=== PATIENT | male | born 1970 | race Caucasian/White ===

== ENCOUNTER → 2020-04-11 14:53 | Outpatient (CLI) | payer BC, SELFPAY ==
[2020-04-11 14:55] LABS: MANUAL DIFFERENTIAL MANUAL DIFFERENTIAL (MANUAL DIFF)
[2020-04-11 15:50] LABS: Basophils # 0.1 K/mm3 (0-0.2); Basophils % 0.7 % (0.1-2.0); Eosinophils # 0.8 K/mm3 (0.0-0.4); Eosinophils % 9.5 % (0.1-12.0); Hematocrit 45.8 % (42.0-52.0); Hemoglobin 15.9 g/dL (14.1-18.0); Lymphocytes # 2.3 K/mm3 (0.7-4.5); Lymphocytes % 27.3 % (10-50); Mean Corpuscular HGB Conc 34.8 g/dL (31.8-35.4); Mean Corpuscular Hemoglobin 31.8 pg (27.0-31.2); Mean Corpuscular Volume 91.4 fl (80-94); Mean Platelet Volume 7.1 fl (7.4-10.4); Monocytes # 0.6 K/mm3 (0.1-1.0); Monocytes % 6.8 % (1.7-9.3); Neutrophils # 4.6 K/mm3 (1.8-7.8); Neutrophils % 55.7 % (37.0-80.0); Platelet Count 228 K/mm3 (142-424); Red Blood Count 5.01 M/mm3 (4.60-6.20); Red Cell Distribution Width 12.7 % (11.5-17.5); White Blood Count 8.2 K/mm3 (4.8-10.8)
[2020-04-11 20:47] LABS: Lymphocytes % 23 % (10-50); Monocytes % 11 % (2-9); Neutrophils % 66 % (42-76); Platelet Estimate Normal; RBC Morphology Normal; Total Cells Counted 100
== END ==
PROVIDERS: Visit Provider Otolaryngology
DX: J32.0 Chronic maxillary sinusitis (principal); J34.2 Deviated nasal septum; J34.3 Hypertrophy of nasal turbinates
CPT/HCPCS: 36415; 85007; 85014; 85018; 85048; 85049

== ENCOUNTER → 2020-04-20 11:13 | Outpatient (CLI) | payer BC, SELFPAY ==
--- NOTE | 2020-04-20 11:13 | CT_ITS ---
PROCEDURE: CT CHEST WO CON CLINICAL INDICATION: trachea displacemnt Congestion COMPARISON: CT ANGIO CHEST from 11/24/2019 XR CHEST 2V from 11/24/2019 TECHNIQUE: Axial images obtained with sagittal and coronal reformats. All CT scans at the facility use one or more dose reduction, viz: automated exposure control, ma/kV adjustment per patient size (including targeted exams where dose is matched to indication, i.e. head), or iterative reconstruction technique. FINDINGS: HEART AND MEDIASTINAL STRUCTURES: A 10 mm hypodense nodule is present in the medial aspect of the right lobe of the thyroid gland. No significant tracheal displacement from the nodule. There are few scattered small mediastinal lymph nodes however no dominant adenopathy of the mediastinum or lucero evident. Normal heart size. The trachea is somewhat situated to the right of midline in the mid mediastinal region and may be related to the deviation from the aortic arch. There is no evidence of aortic aneurysm. There are few calcified nodes in the mediastinum and lucero LUNGS AND PLEURAL SPACES: Unremarkable. BONY STRUCTURES: There are degenerative changes of the thoracic spine with multilevel thoracic spondylosis. UPPER ABDOMEN: There is thickening of the esophagus throughout. This is nonspecific and could be related to nondistention versus underlying esophagitis. ADDITIONAL FINDINGS: No other significant abnormalities. IMPRESSION: 1. There is mild tracheal deviation toward the right in the mid the mediastinal region. This is not significantly changed and not felt to be due to pathologic etiology likely related to deviation from the overlying aortic arch without evidence of aneurysm.. 2. Mild thickening of the thoracic esophagus nonspecific and could be due to nondistention or soft guidance. 3. Overall no significant change from the previous exam Dictated by: Saud Woodruff MD 04/21/2020 11:21 Electronically signed by Saud Woodruff MD in [place] 04/21/2020 11:21
--- NOTE | 2020-04-20 11:13 | CT_ITS ---
PROCEDURE: CT SINUS WO CON CLINICAL HISTORY: congestion Sinusitis, congestion, tracheal displacement COMPARISON: No exams were available for comparison TECHNIQUE: Axial images obtained with sagittal and coronal reformats. All CT scans at the facility use one or more dose reduction, viz: automated exposure control, ma/kV adjustment per patient size (including targeted exams where dose is matched to indication, i.e. head), or iterative reconstruction technique. FINDINGS: There is complete opacification the frontal sinuses and ethmoid sinuses. There is near complete opacification of both maxillary sinuses with minimal aeration in the central aspect of the right maxillary sinus with an air-fluid level. There is also near complete opacification of the sphenoid sinus with a few small air-fluid levels within the sphenoid sinus. No mastoid effusion. The orbits have an unremarkable appearance. TMJs are unremarkable. IMPRESSION: Severe pansinusitis Dictated by: Saud Woodruff MD 04/20/2020 18:02 Electronically signed by Saud Woodruff MD in [place] 04/20/2020 18:02
== END ==
PROVIDERS: PCP Family Medicine; Visit Provider Otolaryngology
DX: J32.0 Chronic maxillary sinusitis (principal); J34.2 Deviated nasal septum; J34.3 Hypertrophy of nasal turbinates
CPT/HCPCS: 70486; 71250

== ENCOUNTER → 2020-05-24 10:56 | Outpatient (CLI) | payer BC, SELFPAY ==
--- NOTE | 2020-05-24 11:15 | ECG_ITS ---
APPROVED REPORT Exam: Resting ECG HR:80 bpm ECG Measurements Heart Rate 80 AXES ID 184 P 45 QRSd 106 QRS -27 QT 378 T 49 QTc 435 <Conclusion> Sinus rhythm with frequent premature ventricular complexes Otherwise normal ECG Electronically signed by : Ed Banda, 05/27/2020 07:09:42
[2020-05-24 11:18] LABS: Basophils # 0.1 K/mm3 (0-0.2); Basophils % 0.9 % (0.1-2.0); Eosinophils # 1.9 K/mm3 (0.0-0.4); Eosinophils % 23.9 % (0.1-12.0); Hematocrit 44.1 % (42.0-52.0); Hemoglobin 15.8 g/dL (14.1-18.0); Lymphocytes # 1.8 K/mm3 (0.7-4.5); Lymphocytes % 22.7 % (10-50); Mean Corpuscular HGB Conc 35.9 g/dL (31.8-35.4); Mean Corpuscular Hemoglobin 32.4 pg (27.0-31.2); Mean Corpuscular Volume 90.4 fl (80-94); Mean Platelet Volume 7.5 fl (7.4-10.4); Monocytes # 0.5 K/mm3 (0.1-1.0); Neutrophils # 3.7 K/mm3 (1.8-7.8); Neutrophils % 46.5 % (37.0-80.0); Platelet Count 222 K/mm3 (142-424); Red Blood Count 4.88 M/mm3 (4.60-6.20); Red Cell Distribution Width 12.9 % (11.5-17.5)
[2020-05-24 13:05] LABS: Coronavirus 19 IgG Antibody Negative (Negative); Coronavirus 19 IgM Antibody Negative (Negative)
--- NOTE | 2020-05-25 10:27 | P.PN_ITS ---
[facility] Anesthesia Checklist - Patient Identification Patient Identification: Arm Band - Structural Data Admitted From: Home Planned Operative Procedure/s: nasal septoplasty with FESS Consent for Planned Operative Procedure(s) Verified: Yes Verified Documents: Surgical Consent, History and Physical - NPO Status Verified Time NPO: 00:00 - Additional verifications Anesthesia Reactions: No Hx Blood Transfusions: No Blood Transfusion Reaction: No - Airway Assessment C-Spine Mobility Assessed: Yes (mp2) TMJ Mobility Assessed: Yes Dentition: Good Dentition - Neurological Assessment Level of Consciousness: Awake, Alert - Anesthesia Plan Anesthesia Risk discussed: Yes Anesthesia Plan: Verified ASA Class: II Anesthesia Type: General [facility] History I have reviewed the patient's past medical history: Yes Medical History: Denies:: Cancer, Diabetes Mellitus Type 1, Diabetes Mellitus Type 2, MRSA, Seizures *Have you ever received a pneumonia vaccine?: No *Have you received a flu vaccine this season?: Yes Other Medical History: Reports: Sinus Problems. Denies: Blood Transfusion Reaction Anesthesia experience/problems:: nac Other Surgeries: Yes: Other Amputation: No Fractures: No - *Social History Smoking Status: Former smoker Tobacco Type: smokeless tobacco # Packs/Day (cigarettes): 0 Alcohol Intake: never Substance Use Type: denies use *Occupational Status:: employed Housing: house Household Members: spouse *Travel in the last 8 weeks: None Family Hx:: No significant family history
[2020-05-25 10:28] VITALS: BP 125/71; PULSE 83; RESP 16; TEMP 36.2; O2SAT 94
--- NOTE | 2020-05-25 10:28 | HMH.ANESI ---
[facility] Anesthesia Record Part I Intake, IV Amount: 1,100 Estimated blood loss (mL): 10 Urine output (mL): 0 Blood Pressure: 125/71 SaO2: 94 Pulse Rate: 83 Respiratory Rate: 16 Temperature: 97.2 F Patient is:: Drowsy, Stable Stable to PACU at:: 10:20
== END ==
PROVIDERS: Visit Provider Otolaryngology
DX: Z01.818 Encounter for other preprocedural examination (principal); J34.2 Deviated nasal septum; J01.01 Acute recurrent maxillary sinusitis; J34.3 Hypertrophy of nasal turbinates
CPT/HCPCS: 36415; 85025; 86328; 93005

== ENCOUNTER 2020-05-25 08:22 | Day surgery (SDC) | payer BC, SELFPAY ==
[2020-05-23 14:13] VITALS: BMI 29.1
[2020-05-25] VITALS (11 sets, daily range): BP systolic 112–127; BP diastolic 69–89; PULSE 66–91; RESP 16–18; TEMP 36.2–36.8; O2SAT 94–97
--- NOTE | 2020-05-25 10:17 | P.OP_ITS ---
Date of procedure: 05/25/20 Pre-op Diagnosis:: 1. Deviated nasal septum with 90% nasal airflow blockage 2. Chronic bilateral maxillary sinusitis Post-op Diagnosis:: same Procedure performed:: 1. Nasal septoplasty 2. Endoscopic sinus surgery with left intranasal maxillary antrostomy with removal of tissue Surgeon:: Alverto Martinez MD COMMERCIAL SALES SPECIALIST:: Marshall Sykes Anesthesia: GETA Estimated blood loss (mL): 15 Operative findings:: same Operative note:: Patient under general anesthesia having been given 1 g of Ancef and 12 mg of D ecadron the face was prepped and draped. The eyes were protected with Steri- Strips. The nose was decongested with topical cocaine and 5 cc of 2% lidocaine with epi were injected into the nasal antral glez and septum.. There was a severe deviation of the nasal septum to the right anteriorly and posteriorly into the left in the midportion of the septum. The nasal passages were blocked completely on each side. A left hemitransfixion incision was made in the mucoperichondrium and mucoperiosteum was elevated from both sides of the nasal septum. The quadrangular cartilage was trimmed anteriorly and inferiorly. The maxillary crest was extremely widened and spur particularly to the right side and using the [place] forceps the maxillary crest was narrowed and trimmed. However, it was extremely vascular as well and bleeding was stopped with bipolar cautery but there was oozing through most of the procedure. The quadrangular cartilage was set in the midline and the septum was set in the midline and held there with transfixion and hemitransfixion chromic sutures after Surgicel Surgicel snow was placed between the flaps. The nasal passages were opened up with that procedure however it was not possible to access the right maxillary sinus because of the oozing from the inferior meatal area. A left intranasal maxillary antrostomy was done and mucosal thickening was moved from the removed from the left nasal sinus and submitted. Bleeding was approximately 15 cc and stopped completely with suction cautery. Surgicel snow was placed in the nasal passages and a drip pad dressing was applied and the patient was sent to recovery in good general condition. Condition: stable Disposition: PACU Complications:: none
--- NOTE | 2020-05-25 11:41 | P.PN_ITS ---
[facility] Anesthesia Checklist - Patient Identification Patient Identification: Arm Band - Structural Data Admitted From: Home Planned Operative Procedure/s: nasal septoplasty Consent for Planned Operative Procedure(s) Verified: Yes Verified Documents: Surgical Consent, History and Physical - NPO Status Verified Time NPO: 00:00 - Additional verifications Anesthesia Reactions: No Hx Blood Transfusions: No Blood Transfusion Reaction: No - Airway Assessment C-Spine Mobility Assessed: Yes (mp2) TMJ Mobility Assessed: Yes Dentition: Good Dentition - Neurological Assessment Level of Consciousness: Awake, Alert - Anesthesia Plan Anesthesia Risk discussed: Yes Anesthesia Plan: Verified ASA Class: II Anesthesia Type: General [facility] History I have reviewed the patient's past medical history: Yes Medical History: Denies:: Cancer, Diabetes Mellitus Type 1, Diabetes Mellitus Type 2, MRSA, Seizures *Have you ever received a pneumonia vaccine?: No *Have you received a flu vaccine this season?: Yes Other Medical History: Reports: Sinus Problems. Denies: Blood Transfusion Reaction Anesthesia experience/problems:: nac Other Surgeries: Yes: Other Amputation: No Fractures: No - *Social History Last grade of school completed: High school graduate Smoking Status: Former smoker Tobacco Type: smokeless tobacco # Packs/Day (cigarettes): 0 Alcohol Intake: never Substance Use Type: denies use *Occupational Status:: employed Housing: house Household Members: spouse *Travel in the last 8 weeks: None Family Hx:: No significant family history
--- NOTE | 2020-05-25 11:42 | HMH.ANESI ---
[facility] Anesthesia Record Part I Intake, IV Amount: 1,100 Estimated blood loss (mL): 10 Urine output (mL): 0 Blood Pressure: 125/71 SaO2: 94 Pulse Rate: 83 Respiratory Rate: 16 Temperature: 97.2 F Patient is:: Drowsy, Stable Stable to PACU at:: 10:20
--- NOTE | 2020-05-25 11:42 | HMH.ANESII ---
[facility] Anesthesia Record Part II Discharge Time: 10:50 Destination: Surgical Day Care (OP Surgery) PACU nurse assessment reviewed?: Yes Patient Condition:: Good Anesthesia Complications:: None Swallowing reflex intact?: Yes Cyanosis?: No Blood Pressure: 114/78 Pulse Rate: 85 Temperature: 97.2 F Mental Status: Alert & Oriented Pain level:: 0 Nausea and/or vomitting:: None Intake, IV Amount: 0
== END 2020-05-25 11:35 | disposition home or self-care (01) ==
LOC: OR 08:23
PROVIDERS: PCP Family Medicine; Visit Provider Otolaryngology
PROC: (CPT 30520; principal; 2020-05-25 09:45)
DX: J34.2 Deviated nasal septum (principal); J32.0 Chronic maxillary sinusitis; Z79.899 Other long term (current) drug therapy; Z87.891 Personal history of nicotine dependence
CPT/HCPCS: 31267; 30520; 96374; 96375; J0131; J2405; J2710

== ENCOUNTER → 2021-08-11 12:08 | Outpatient (CLI) | payer BC, SELFPAY | PROVIDERS: PCP Family Medicine; Visit Provider Nurse Practitioner Family | DX: Z20.822 Contact with and (suspected) exposure to COVID-19 (principal) | CPT/HCPCS: C9803; U0003; U0005 ==

== ENCOUNTER 2021-10-20 09:20 | Emergency (ER) | payer BC, SELFPAY ==
[2021-10-20 09:31] VITALS: BP 136/81; PULSE 104; RESP 14; TEMP 36.4; O2SAT 98; BMI 29.1
--- NOTE | 2021-10-20 10:10 | HMH.EDUTC ---
[facility] – [place], [place] Disposition Clinical Impression: Maxillary sinusitis, acute Qualifiers: Recurrence: non-recurrent Qualified Code(s): J01.00 - Acute maxillary sinusitis, unspecified Disposition: Home, Self-Care Condition on Discharge: Good Instructions: Sinusitis, DI for Sinusitis Additional Instructions: Start antibiotic patient to take as ordered for a full length of time even if you feel better. Sinus infections do not get better overnight. It may take 2-3 days to notice much improvement so be sure to use conservative measures as discussed for symptoms. Flonase 1 spray each nostril daily to help with nasal congestion, sinus and ear pressure/information Increase fluids Humidifier/vaporizer as needed Tylenol and ibuprofen as needed for fever or pain. If symptoms do not improve or get worse return or be seen in the ER Follow-up with primary care this week covid swab was sent to lab, call tomorrow for results. self isolate until test results are known to be negative Prescriptions: Fluticasone Propionate [Flonase 50mcg nasal spray 16gm] 1 spr NS DAILY 14 Days #9.9 ml Transmission Status: Pending to [facility] Azithromycin [Zithromax 250mg tab] 250 mg PO DIRECTED #6 tab Transmission Status: Pending to [facility] Referrals: Ed Garner MD [Primary Care Provider] - Time of Disposition: 10:18 Medical Decision Making - Oscar Inquiry Pt receiving controlled substance: No Vital Signs: 10/20/21 09:31 Temperature 97.5 F L Temperature Source Oral Pulse Rate [Left] 104 H Respiratory Rate 14 Blood Pressure [Right Arm] 136/81 Blood Pressure Mean [Right Arm] 99 02 Sat by Pulse Oximetry 98 Orders (Tests/Meds): ORDERS Category Date Time Status Covid-19 Nasal PCR ([facility]) Routine Lab 10/20/21 09:37 Ordered [facility] [place], [place] HPI - General Chief complaint: Urgent Treatment [facility] Stated complaint: congestion Time Seen by Provider: 10/20/21 10:10 Mode of Arrival: Ambulatory Source of Information: Patient Limitations: No Limitations Description of Symptoms (Recalled from Triage Doc. by RN): pt c/o sinus pain/congestion x2wks with yellow mucous. pt denies any other symptoms. HEENT Symptoms (Recalled from RN notes): Yes (sinus congestion with yellow mucous) Resp Symptoms (Recalled from RN notes): No Skin Symptoms (Recalled from RN notes): No MS Symptoms (Recalled from RN notes): No Functional Status (Recalled from RN notes): wnl - History of Present Illness Provider Complaint: 51 yr old male c/o sinus pain/congestion x2wks with yellow mucous. pt denies any other symptoms. - Related Data Home Medications Medication Instructions Recorded Confirmed Albuterol Sulfate [Ventolin HFA 1 puff PO Q4HP PRN 11/24/19 06/01/20 Inhaler] Loratadine [Claritin 10mg 10 mg PO DAILY 11/24/19 06/01/20 Tablet] Montelukast Sodium [Singulair 10mg 10 mg PO PM 11/24/19 06/01/20 tablet] budesonide-formoterol HFA 160 1 g INHALATION DAILY 04/11/20 06/01/20 mcg-4.5 mcg/actuation aerosol inhaler Ipratropium/Albuterol Sulfate 3 ml IH TID 05/25/20 06/01/20 [Duoneb 3mL neb] predniSONE [Prednisone 20mg 20 mg PO DAILY 05/25/20 06/01/20 Tab] Previous Rx's Medication Instructions Recorded triamcinolone acetonide 55 mcg 1 spray INTRANASAL DAILY #16.9 ml 06/01/20 nasal spray aerosol Azithromycin [Zithromax 250mg 250 mg PO DIRECTED #6 tab 10/20/21 tab] Fluticasone Propionate [Flonase 1 spr NS DAILY 14 Days #9.9 ml 10/20/21 50mcg nasal spray 16gm] Allergies Allergy/AdvReac Type Severity Reaction Status Date / Time No Known Allergies Allergy Verified 06/01/20 15:48 - Worker's Comp Is this a Worker's Comp case?: No [facility] History - Hepatitis A Screen Drug use history?: No High risk sexual behaviors?: No History of sexually transmitted infection?: No Currently employed?: No Childcare worker?: No Do you have indoor plumbing?: Yes Do you have electricity?:
[2021-10-20 10:32] VITALS: BP 136/81; PULSE 104; RESP 14; TEMP 36.4
== END 2021-10-20 10:36 | disposition home or self-care (01) ==
PROVIDERS: Emergency Provider Nurse Practitioner Family; PCP Family Medicine
DX: J01.00 Acute maxillary sinusitis, unspecified (principal); F17.290 Nicotine dependence, other tobacco product, uncomplicated
CPT/HCPCS: 99202; G0463

== ENCOUNTER → 2021-12-05 08:22 | Outpatient (CLI) | payer BC, SELFPAY ==
--- NOTE | 2021-12-05 08:22 | CT_ITS ---
FINAL REPORT TECHNIQUE: Thin section axial CT images of the facial bones and sinuses were obtained without contrast. Coronal reformatted images were also obtained. This study was performed with techniques to keep radiation doses as low as reasonably achievable, (ALARA). Individualized dose reduction techniques using automated exposure control or adjustment of mA and/or kV according to the patient''''s size were employed. CLINICAL HISTORY: sinus polyps COMPARISON: 04/20/2020 FINDINGS: There are sizable fluid levels in both maxillary sinuses. There is opacification of multiple ethmoid air cells. There is mucosal thickening and debris in the right sphenoid sinus. Multiple masses/nodules are seen in the nasal cavity, largest on the left measures 22 mm. Overall, the appearance has improved since prior. There is partial improved aeration. Soft tissue obstructs the maxillary sinus ostia and infundibulum. There is rightward nasal septal deviation with right sided nasal septal spur. IMPRESSION: Widespread sinusitis with acute maxillary sinusitis. Persistent but improved presumed nasal polyposis. Reviewed, Interpreted and Dictated by Gilbert Schneider III, MD Transcribed by Aleyda Mcdowell Authenticated by Gilbert Schneider III, MD on 12/05/2021 10:23:[address] [facility]
== END ==
PROVIDERS: PCP Family Medicine; Visit Provider Otolaryngology
DX: J33.9 Nasal polyp, unspecified (principal); J32.9 Chronic sinusitis, unspecified
CPT/HCPCS: 70486

== ENCOUNTER → 2022-03-04 16:20 | Outpatient (CLI) | payer BC, SELFPAY ==
[2022-03-04 16:29] LABS: MANUAL DIFFERENTIAL MANUAL DIFFERENTIAL (MANUAL DIFF)
[2022-03-04 17:27] LABS: Basophils # 0.1 K/mm3 (0-0.2); Basophils % 1.4 % (0.1-2.0); Eosinophils # 1.3 K/mm3 (0.0-0.4); Eosinophils % 14.9 % (0.1-12.0); Hematocrit 47.2 % (42.0-52.0); Hemoglobin 16.4 g/dL (14.1-18.0); Lymphocytes # 2.6 K/mm3 (0.7-4.5); Lymphocytes % 28.8 % (10-50); Mean Corpuscular HGB Conc 34.8 g/dL (31.8-35.4); Mean Corpuscular Hemoglobin 31.4 pg (27.0-31.2); Mean Corpuscular Volume 90.3 fl (80-94); Mean Platelet Volume 7.8 fl (7.4-10.4); Monocytes # 0.6 K/mm3 (0.1-1.0); Monocytes % 6.7 % (1.7-9.3); Neutrophils # 4.3 K/mm3 (1.8-7.8); Neutrophils % 48.1 % (37.0-80.0); Platelet Count 260 K/mm3 (142-424); Red Blood Count 5.23 M/mm3 (4.60-6.20); Red Cell Distribution Width 13.3 % (11.5-17.5); White Blood Count 8.9 K/mm3 (4.8-10.8)
[2022-03-04 17:40] LABS: Alanine Aminotransferase 34 U/L (12-78); Albumin Level 4.1 g/dl (3.5-5.0); Albumin/Globulin Ratio 1.4 (1.1-1.8); Alkaline Phosphatase 85 U/L (38-126); Anion Gap 12.6 mEq/L (5-15); Aspartate Amino Transferase 33 U/L (17-59); Bilirubin,Total 1.2 mg/dl (0.2-1.3); Blood Urea Nitrogen 10 mg/dl (9-20); Calcium 9.3 mg/dl (8.4-10.2); Carbon Dioxide 28 mmol/L (22.0-30.0); Chloride 102 mmol/L (98-107); Estimated Glomerular Filt Rate 79 ml/min (>60); GFR (African American) 95 ML/MIN (>60); Globulin 2.9 g/dL (1.3-3.2); Glucose 85 mg/dl (74-100); Potassium 3.6 mmoL/L (3.5-5.1); Sodium 139 mmol/L (136-145)
[2022-03-04 21:24] LABS: Eosinophils % 13 % (0-3); Lymphocytes % 32 % (10-50); Monocytes % 2 % (2-9); Neutrophils % 52 % (42-76); Platelet Estimate Normal; Total Cells Counted 100
== END ==
PROVIDERS: PCP Family Medicine; Visit Provider Otolaryngology
DX: Z01.818 Encounter for other preprocedural examination (principal); Z11.52 Encounter for screening for COVID-19; J34.2 Deviated nasal septum; J34.3 Hypertrophy of nasal turbinates
CPT/HCPCS: 36415; 80053; 85007; 85014; 85018; 85048; 85049; C9803; U0003; U0005

== ENCOUNTER 2022-03-06 06:02 | Day surgery (SDC) | payer BC, SELFPAY ==
[2022-03-04 11:53] VITALS: BMI 28.5
[2022-03-06] VITALS (10 sets, daily range): BP systolic 107–130; BP diastolic 73–86; PULSE 89–92; RESP 10–18; TEMP 36.4–43; O2SAT 92–96
--- NOTE | 2022-03-06 06:49 | ECG_ITS ---
APPROVED REPORT Exam: Resting ECG HR:90 bpm ECG Measurements Heart Rate 90 AXES ND 198 P 47 QRSd 93 QRS -45 QT 338 T 30 QTc 386 Conclusion SINUS RHYTHM WITH OCCASIONAL VENTRICULAR PREMATURE COMPLEXES LEFT AXIS DEVIATION [QRS AXIS < -30] ABNORMAL ECG UNCONFIRMED REPORT Electronically signed by : Ed Banda MD 03/06/2022 16:52:38
--- NOTE | 2022-03-06 07:08 | SUR.PREOP ---
Marlee Barcenas SCROLL MACHINE OPERATOR notified of EKG result and said EKG is okay.
--- NOTE | 2022-03-06 08:19 | HMH.ANESCL ---
[facility] Anesthesia Checklist - Patient Identification Patient Identification: Arm Band, Verbal (Name & ) - Structural Data Admitted From: Home Planned Operative Procedure/s: FESS Consent for Planned Operative Procedure(s) Verified: Yes Verified Documents: Surgical Consent - NPO Status Verified Time NPO: 00:00 - Chart Verification Results Verified: CBC - Additional verifications Anesthesia Reactions: No Hx Blood Transfusions: No Blood Transfusion Reaction: No - Airway Assessment C-Spine Mobility Assessed: Yes TMJ Mobility Assessed: Yes - Neurological Assessment Level of Consciousness: Awake, Alert, Appropriate - Anesthesia Plan Anesthesia Risk discussed: Yes ASA Class: II Anesthesia Type: General [facility] History Medical History: Denies:: Cancer, Diabetes Mellitus Type 1, Diabetes Mellitus Type 2, Internal Pacemaker, MRSA, Seizures *Have you ever received a pneumonia vaccine?: No *Have you received a flu vaccine this season?: No Other Medical History: Reports: Sinus Problems. Denies: Blood Transfusion Reaction Anesthesia experience/problems:: none Other Surgeries: Yes: Sinus Surgery, Other. No: Pacemaker Amputation: No Fractures: No - *Social History Last grade of school completed: Advanced degree Smoking Status: Former smoker Tobacco Type: smokeless tobacco # Packs/Day (cigarettes): 0 #Yrs smoked (if former smoker): 8 Smoking End Date: 2003 Alcohol Intake: current Alcohol Intake Frequency:: a few times a week Substance Use Type: denies use *Occupational Status:: employed Housing: house Household Members: spouse, children *Travel in the last 8 weeks: None Family Hx:: Diabetes
--- NOTE | 2022-03-06 09:39 | SUR.OPER ---
0911-family updated at this time
--- NOTE | 2022-03-06 11:01 | HMH.OPNOTE ---
Date of procedure: 03/06/22 Pre-op Diagnosis:: Chronic pansinusitis Post-op Diagnosis:: Chronic pansinusitis Procedure performed:: Image guided functional endoscopic sinus surgery with nasal endoscopy and bilateral complete sphenoethmoidectomy, nasal endoscopy and bilateral frontal sinusotomies, nasal endoscopy and maxillary antrostomies and removal of antral mucosal disease Surgeon:: Kodak Young MD HAND THERMAL CUTTER:: Other Anesthesia: GETA Estimated blood loss (mL): 500 Operative findings:: Severe chronic pansinusitis with nasal polyp disease throughout the frontal, ethmoid, maxillary, and sphenoid sinuses and evidence of allergic fungal sinusitis of the right maxillary sinus Operative note:: The patient was brought to the operating room and placed supine and after adequate general anesthesia the nose was draped in the usual sterile fashion and 1% lidocaine with epinephrine used to locally infiltrate the septum and middle meatuses. Then the image guided system was calibrated and used throughout the case. Using a 0 degree sinus endoscope the right millimeters was visualized in the middle turbinate utilized and then severe polyp disease in the middle meatus cleared with microdebrider and then uncinectomy performed with the pediatric backbiter and microdebrider clearing the nasofrontal tract and infundibulum. The natural ostium of the maxillary sinus was then enlarged and then polyp disease from within the maxillary sinus was cleared and there was inspissated material in the maxillary sinus consistent with fungal sinusitis and this was sent for specimen and culture and then suctioned and irrigated clear. The nasofrontal tract was then cleared of obstructing polyp disease of the frontal sinuses well aerated and then complete ethmoidectomy performed using image guidance to clear the anterior and posterior ethmoid laterally to the medial orbital wall, superiorly to the skull base, and posteriorly to the sphenoid recess. Sphenoid recess was then explored and cleared of obstructing polyp disease until the sphenoid sinus ostium was clear and the sphenoid sinus was well aerated. Nova pack was placed in the right middle meatus and attention drawn to the left side. Again using a 0 degree sinus endoscope and microdebrider, polyp disease was cleared from the middle meatus and choana. The middle turbinate was then medialized and uncinectomy again performed clearing the nasal from tract and infundibulum and the natural ostium was then enlarged and cleared of obstructing maxillary sinus disease till the maxillary sinus was well aerated sphenoid recess was cleared of obstructing polyp disease until the sphenoid sinus was easily cannulated and the sphenoid sinus was well aerated. The frontal recess was cleared of obstructing polyp disease until the nasofrontal tract was clear and the frontal sinuses well aerated and then complete anterior and posterior ethmoidectomy again performed using image guidance to clear the anterior and posterior ethmoid laterally to the medial orbital wall, superiorly to the skull base, and posteriorly to the face of the sphenoid. Nova pack was placed in the left middle meatus and the procedure concluded. The procedure was tedious because of inflammation and bleeding and took approximately 3 hours. All counts correct. Blood loss was approximately 500 mL. Patient was sent to recovery in stable condition. Condition: stable Disposition: PACU Complications:: none
--- NOTE | 2022-03-06 11:08 | HMH.ANESI ---
[facility] Anesthesia Record Part I Intake, IV Amount: 800 Estimated blood loss (mL): 500 Urine output (mL): 0 Blood Products used (#): none Blood Pressure: 107/73 SaO2: 93 Pulse Rate: 90 Respiratory Rate: 10 Temperature: 99.0 F Patient is:: Drowsy Stable to PACU at:: 11:05
--- NOTE | 2022-03-07 08:08 | HMH.ANESII ---
[facility] Anesthesia Record Part II Discharge Time: 11:32 Destination: Surgical Day Care (OP Surgery) PACU nurse assessment reviewed?: Yes Patient Condition:: Good Anesthesia Complications:: None Swallowing reflex intact?: Yes Cyanosis?: No Blood Pressure: 130/86 Pulse Rate: 92 Temperature: 98.5 F Mental Status: Alert & Oriented Pain level:: 0 Nausea and/or vomitting:: None Intake, IV Amount: 0
[2022-03-07 08:09] VITALS: BP 130/86; PULSE 92; TEMP 36.9
== END 2022-03-06 12:07 | disposition home or self-care (01) ==
LOC: OR 06:04
PROVIDERS: PCP Family Medicine; Visit Provider Otolaryngology
PROC: (CPT 30520; principal; 2022-03-06 07:30)
DX: J32.2 Chronic ethmoidal sinusitis (principal); J32.1 Chronic frontal sinusitis; J33.8 Other polyp of sinus; J32.0 Chronic maxillary sinusitis; J34.3 Hypertrophy of nasal turbinates; Z87.891 Personal history of nicotine dependence; Z79.899 Other long term (current) drug therapy
CPT/HCPCS: 31256; 31253; 87070; 87077; 87102; 87186; 87205; 87206; 93005; 96374; J2405; J2710

== ENCOUNTER → 2022-04-13 09:54 | Outpatient (CLI) | payer BC, SELFPAY ==
[2022-04-13 10:29] LABS: Basophils # 0.2 K/mm3 (0-0.2); Basophils % 2.3 % (0.1-2.0); Eosinophils # 0.8 K/mm3 (0.0-0.4); Hematocrit 46.8 % (42.0-52.0); Hemoglobin 15.3 g/dL (14.1-18.0); Lymphocytes # 1.9 K/mm3 (0.7-4.5); Lymphocytes % 26.4 % (10-50); Mean Corpuscular HGB Conc 32.8 g/dL (31.8-35.4); Mean Corpuscular Hemoglobin 31.1 pg (27.0-31.2); Mean Corpuscular Volume 94.7 fl (80-94); Mean Platelet Volume 7.9 fl (7.4-10.4); Monocytes # 0.5 K/mm3 (0.1-1.0); Monocytes % 7.7 % (1.7-9.3); Neutrophils # 3.7 K/mm3 (1.8-7.8); Neutrophils % 52.6 % (37.0-80.0); Platelet Count 254 K/mm3 (142-424); Red Blood Count 4.94 M/mm3 (4.60-6.20); Red Cell Distribution Width 13.2 % (11.5-17.5)
[2022-04-13 10:59] LABS: Anion Gap 11.1 mEq/L (5-15); Blood Urea Nitrogen 14 mg/dl (9-20); Calcium 9.2 mg/dl (8.4-10.2); Carbon Dioxide 27 mmol/L (22.0-30.0); Chloride 105 mmol/L (98-107); Estimated Glomerular Filt Rate 79 ml/min (>60); GFR (African American) 95 ML/MIN (>60); Glucose 121 mg/dl (74-100); Potassium 4.1 mmoL/L (3.5-5.1); Sodium 139 mmol/L (136-145)
== END ==
PROVIDERS: PCP Family Medicine; Visit Provider Otolaryngology
DX: Z01.818 Encounter for other preprocedural examination (principal); Z20.822 Contact with and (suspected) exposure to COVID-19; J34.2 Deviated nasal septum
CPT/HCPCS: 36415; 80048; 85025; C9803; U0003; U0005

== ENCOUNTER 2022-04-16 07:51 | Day surgery (SDC) | payer BC, SELFPAY ==
[2022-04-15 09:02] VITALS: BMI 28.5
[2022-04-16] VITALS (11 sets, daily range): BP systolic 100–125; BP diastolic 52–91; PULSE 62–80; RESP 12–18; TEMP 36.2–36.8; O2SAT 92–99
--- NOTE | 2022-04-16 09:45 | HMH.ANESCL ---
[facility] Anesthesia Checklist - Patient Identification Patient Identification: Arm Band, Verbal (Name & ) - Structural Data Admitted From: Home Planned Operative Procedure/s: Septoplasty Consent for Planned Operative Procedure(s) Verified: Yes Verified Documents: Surgical Consent - NPO Status Verified Time NPO: 00:00 - Chart Verification Results Verified: CBC, BMP - Additional verifications Anesthesia Reactions: No Hx Blood Transfusions: No Blood Transfusion Reaction: No - Airway Assessment C-Spine Mobility Assessed: Yes TMJ Mobility Assessed: Yes Dentition: Good Dentition - Neurological Assessment Level of Consciousness: Awake, Alert, Appropriate - Anesthesia Plan Anesthesia Risk discussed: Yes ASA Class: II Anesthesia Type: General [facility] History I have reviewed the patient's past medical history: Yes Medical History: Denies:: Cancer, Diabetes Mellitus Type 1, Diabetes Mellitus Type 2, Internal Pacemaker, MRSA, Seizures *Have you ever received a pneumonia vaccine?: No *Have you received a flu vaccine this season?: No Other Medical History: Reports: Sinus Problems. Denies: Blood Transfusion Reaction Anesthesia experience/problems:: none Other Surgeries: Yes: Sinus Surgery, Other. No: Pacemaker Amputation: No Fractures: No - *Social History Last grade of school completed: Advanced degree Smoking Status: Never smoker Tobacco Type: smokeless tobacco # Packs/Day (cigarettes): 0 #Yrs smoked (if former smoker): 8 Alcohol Intake: current Alcohol Intake Frequency:: a few times a week Substance Use Type: denies use *Occupational Status:: employed Housing: house Household Members: spouse *Travel in the last 8 weeks: None Family Hx:: Diabetes
--- NOTE | 2022-04-16 11:03 | P.OP_ITS ---
Date of procedure: 04/16/22 Pre-op Diagnosis:: Deviated septum, intranasal adhesions bilaterally, left inferior turbinate hypertrophy Post-op Diagnosis:: Deviated septum, intranasal adhesions bilaterally, left inferior turbinate hypertrophy Procedure performed:: Septoplasty, nasal endoscopy and lysis of intranasal adhesions bilaterally, submucous resection of the left inferior turbinate Surgeon:: Kodak Young MD CORPORATE ADMINISTRATOR:: Bandar Leon Anesthesia: GETA Estimated blood loss (mL): 100 Operative findings:: Deviated septum anteriorly to the left and posteriorly to the right, intranasal adhesions from the septum to the inferior turbinate bilaterally, left inferior turbinate hypertrophy Operative note:: The patient was brought to the operating room and after adequate general anesthesia the nose was prepped and draped in the usual sterile fashion and 1% lidocaine with epinephrine used to locally infiltrate the septum and inferior turbinates. A right hemitransfixion incision was made and mucoperichondrial flaps elevated off the bony and cartilaginous septum bilaterally. He has had previous septoplasty so there was some dense scarring making dissection difficult. However the flaps were successfully elevated and then deviated portion of the cartilaginous septum anteriorly was resected and then a large bony spur posteriorly on the right from the vomer was also resected and then the mucosal flaps returned to anatomic position and held in place with a 4-0 plain gut horizontal mattress suture and hemitransfixion incision closed with 4-0 chromic. The bulk of the caudal septum was preserved to maintain dorsal support. A 0 degree sinus endoscope was then employed to perform nasal endoscopy. There were dense adhesions between the septum and inferior turbinate bilaterally and these were lysed sharply. I then decided that the left inferior turbinate was hypertrophic and likely recurrent synechia would form and therefore a mucosal incision on the left inferior turbinate was made anteriorly and then mucosal flaps elevated off the hypertrophic bone of the inferior turbinate and then the hypertrophic bone resected sparing the overlying mucosa. The mucosal flaps were then returned to anatomic position. Fulton splints were then placed on the septum bilaterally and secured to the columella using 3-0 nyl on and the procedure concluded. All counts correct. Blood loss was approximately 100 mL. Patient was sent recovery in stable condition. Condition: stable Disposition: PACU Complications:: None
--- NOTE | 2022-04-16 11:13 | HMH.ANESI ---
[facility] Anesthesia Record Part I Intake, IV Amount: 1,200 Estimated blood loss (mL): 5 Urine output (mL): 0 Blood Pressure: 121/84 SaO2: 92 Pulse Rate: 72 Respiratory Rate: 16 Temperature: 97.1 F Patient is:: Drowsy, Stable Stable to PACU at:: 11:10
--- NOTE | 2022-04-16 16:25 | HMH.ANESII ---
[facility] Anesthesia Record Part II Discharge Time: 12:00 Destination: Surgical Day Care (OP Surgery) PACU nurse assessment reviewed?: Yes Patient Condition:: Good Anesthesia Complications:: None Swallowing reflex intact?: Yes Cyanosis?: No Blood Pressure: 119/91 Pulse Rate: 73 Temperature: 97.6 F Mental Status: Alert & Oriented Pain level:: 0 Nausea and/or vomitting:: None Intake, IV Amount: 0
== END 2022-04-16 12:35 | disposition home or self-care (01) ==
LOC: OR 07:53
PROVIDERS: PCP Family Medicine; Visit Provider Otolaryngology
PROC: (CPT 30520; principal; 2022-04-16 09:30)
DX: J34.2 Deviated nasal septum (principal); J34.89 Other specified disorders of nose and nasal sinuses; J34.3 Hypertrophy of nasal turbinates; Z79.899 Other long term (current) drug therapy
CPT/HCPCS: 30520; 30140; 30560; 96374; J2405; J2710

== ENCOUNTER 2025-07-11 07:40 | Outpatient (CLI) | payer BC, SELFPAY ==
--- OUTSIDE RECORDS SUMMARY | 2025-07-06 15:00 | XMS_ITS | Encounter Summary ---
Author Organization [facility] Address [address] [place] [id number] Phone [email or web address] Care Team Providers Care Deputy Clerk Name Role Phone Unavailable Primary Care Provider Unavailabl e Reason for Visit * Reason Comments Blurred Distance Vision OP Mild distance blur with glasses. Blur is constant. Encounter Details Date Type Department Care Team (Late st Contact Info) Description 07/06/2025 3:00 PM EDT Office Visit [facility] [place] [address] [place] [address] Ryland Fox, OD [address] [place] [address] Presbyopia (Primary Dx) Social History Tobacco Use Types Packs/Day Years Used Date Smoking Tobacco: Former Cigarettes Smokeless Tobacco: Current Chew Intimate Partner Violence Answer Date R ecorded Insults You Not on file 01/09/2021 Threatens You Not on file 01/09/2021 Screams at You Not on file 01/09/2021 Physically Hurt Not on file 01/09/2021 Intimate Partner Violence Score Not on file 01/09/2021 Stress Answer Date Recorded Stress in your Life Not on file 08/02/2024 Dealing with Stress 3 08/02/2024 Sex and Gender Information Value Date Recorded Sex Assigned at Not on file Legal Sex Male 7:28 AM CDT Gender Identity Not on file Sexual Orientation Not on file documented as of this encounter Progress Notes * Ryland Fox, JAY - 07/06/2025 3:00 PM EDT Subjective: Ramon Arboleda is a 55 y.o. male. Chief Complaint Blurred Distance Vision OP HPI Blurred Distance Vision OP Additional comments: Mild distance blur with glasses. Blur is constant. Comments Personal eye exam. Last edited by Ryland Fox, OD on 07/06/2025 8:40 PM. ROS Negative for: Constitutional, Gastrointestinal, Neurological, Skin, Genitourinary, Musculoskeletal,HENT, Endocrine, Cardiovascular, Eyes, Respiratory, Psychiatric, Allergic/Imm, Heme/Lymph Last edited by Ryland Fox, OD on 07/06/2025 3:02 PM. Visual Acuity Visual Acuity (Snellen - Linear) Right Left Dist sc 20/25 20/30 Near sc 20/30 20/30 Pupils Pupils Pupils Dark Light APD Right PERRL 7 3 None Left PERRL 7 3 None Extraocular Movement Extraocular Movement Right Left Full, Ortho Full, Ortho Confrontational Visual Lopez Visual Lopez Left Right Full Full Tonometry Tonometry (Non-contact air puff, 3:12 PM) Right Left Pressure 12 14 Color Color Right Left Ishihara 08/09 08/09 Wearing Rx Wearing Rx Sphere Cylinder [place] Add Right +0.25 +1.50 Left +0.75 -0.50 110 +1.50 Type: Bifocal Wearing Rx #2 Sphere Cylinder [place] Add Right +1.00 -0.50 064 Left +1.00 -1.00 113 Type: autorefraction Keratometry Keratometry (Automated) K1 [place] K2 [place] Right 43.50 048 44.00 138 Normal Left 43.50 118 44.50 028 Normal Manifest Refraction Manifest Refraction Sphere Cylinder [place] Dist VA Add Near VA Right +0.75 -0.25 064 20/20 +1.75 J1+ Left +1.25 -0.75 110 20/20 +1.75 J1+ Eyeglass Final Rx Eyeglass Final Rx Sphere Cylinder [place] Dist VA Add Near VA Right +0.75 -0.25 064 20/20 +1.75 J1+ Left +1.00 -0.50 110 20/20 +1.75 J1+ Type: Bifocal Expiration Date: 07/06/2026 Main Ophthalmology Exam External Exam Right Left External Normal Normal Slit Lamp Exam Right Left Lids/Lashes Normal Normal Conjunctiva/Sclera White and quiet White and quiet Cornea Clear Clear Anterior Chamber Deep and quiet Deep and quiet Iris Round and reactive Round and reactive Lens Clear Clear Vitreous Normal Normal Fundus Exam Right Left Disc Normal Normal C/D Ratio 0.1 0.1 Macula Flat and Intact Flat and Intact Vessels Normal Normal <div id= MAIN_EXAM_REVIEWED ></div> Ramon was seen today for blurred distance vision op. Diagnoses and all orders for this visit: Presbyopia (Primary) - new glasses prescription given to patient - mild changes in refraction - stable ocular health OU - RTC 1 year Ryland Fox OD documented in this encounter Plan of Treatment Not on file documented as of this encounter Visit Diagnoses Diagnosis Presbyopia- Primary documented in this encounter
--- OUTSIDE RECORDS SUMMARY | 2025-07-11 07:42 | XMS_ITS | Data Portability ---
Author Organization [facility] Mijares [facility] Address [address] [facility] [facility] [place] [address] Care Team Providers Care Tool Planer Set Up Operator Name Role Phone NATE OCONNELL Primary Care Provider Assessment No assessment recorded. Plan of Treatment Reminders Order Date Submit Date Provider Last Modified By Organization Details Last Modified Time Details Appointments None record ed. Lab None record ed. Referral None record ed. Procedures None record ed. Surgeries None record ed. Imaging None record ed. Medication Orders None record ed. Patient TargetsNo targets recorded. Patient Instructions Encounter Date Encounter Id Patient Instructions Last Modified By Organization Details Last Modified Time 01/14/2022 [id number] spirometry testing* Not available 01/14/2022 16:42:24 03/08/2022 [id number] nasal saline 4-6 times daily and 2 week follow-up Not available 03/08/2022 15:51:43 he is doing well after image guided endoscopic sinus surgery and polypectomy for severe pansinusitis bilaterally. Intraoperative cultures are pending though he had clinical evidence of allergic fungal sinusitis of the right maxillary sinus. Because of severity of sinus disease, septoplasty was deferred but I recommend that in the future. Wound care instructions were reviewed and I will see him for routine follow-up in 2 weeks Not available 03/08/2022 15:53:02 04/18/2022 [id number] 1. Suture and splint removal performed 2. Nasal endoscopy with debridement performed. Full risks, complications, and benefits of non-operative intervention have been thoroughly discussed. Understanding was expressed, informed consent given, and we will proceed with the discussed treatment plan. There were no questions for me at the end of the office visit. 3. Use saline in the nose several times per day 4. F/u in 3-4 weeks. nstaton Not available 04/18/2022 14:37:28 he is doing well after revision septoplasty, left turbinate reduction, and nasal endoscopy and lysis of intranasal adhesions bilaterally. His septal splints were removed and bilateral nasal endoscopic debridement performed. Wound care instructions were reviewed and he will return in routine follow-up in 3 weeks. Not available 04/18/2022 14:39:50 Reason for Referral None Reported. Results Created Date Observation Date Name Description Value Unit Range Abnormal Flag Note LastModifiedBy Organization Detail LastModifiedTime 01/15/20 22 daphnie metry testi ng* No observ ation record ed. Not Available 01/15 11:01:55 Result Notes None recorded. Problems No Known Problems Procedures Surgical History Date Name Laterality Status Provider Name and Address Organization Details Recorded Time 2 Endoscopy Nasal; Biospy, Polypectomy or Debridement completed Sara Mayer [facility] 04/18/2022 14:23:54 2 Endoscopy Nasal; Biospy, Polypectomy or Debridement completed TIAGO BRANNON MD [address] [place] [address], [phone], [facility] 03/08/2022 15:49:48 2 Allergy Testing completed Dusty Rivera [facility] 01/14/2022 14:57:09 Imaging Results None recorded. Procedure Notes None recorded. Medical Equipment None Reported. Allergies No known drug allergies Medications Name Sig Start Date Stop Date Status Note LastModified by Organization Details LastModified Time azithromyci n 250 mg tablet TAKE 2 TABLETS BY MOUTH ON DAY 1, AND THEN TAKE 1 TABLET BY MOUTH ONCE A DAY ON DAY 2 THROUGH DAY 5 03/08 completed Not Available Not Available Not Available sulfamethox azole 800 mg-trimetho prim 160 mg tablet TAKE 1 TABLET BY MOUTH TWICE DAILY FOR 10 DAYS 03/08 completed Not Available Not Available Not Available hydrocodone 7.5 mg-acetamin ophen 325 mg tablet TAKE 1 TABLET BY MOUTH 4 TIMES DAILY FOR 4 DAYS NEEDED FOR SEVERE PAIN 04/18 completed Not Available Not Available Not Available methylpredn isolone 4 mg tablets in a dose pack TAKE BY MOUTH DIRECTED ON INSIDE OF PACKAGE 03/08 completed Not Available Not Available Not Available ondansetron 4 mg disintegrat ing tablet DISSOLVE 1 TABLET IN MOUTH THREE TIMES DAILY NEEDED FOR NAUSEA AND VOMITING 04/18 completed Not Available Not Available Not Available fluticasone propionate 50 mcg/actuati on nasal spray,suspe nsion USE 1 SPRAY(S) IN EACH NOSTRIL ONCE DAILY FOR 14 DAYS 03/08 completed Not Available Not Available Not Available cephalexin 750 mg capsule TAKE 1 CAPSULE BY MOUTH EVERY 12 HOURS FOR 10 DAYS active Not Available Not Available No t Available Symbicort 160 mcg-4.5 mcg/actuati on HFA aerosol inhaler INHALE 2 PUFFS BY MOUTH TWICE DAILY active Not Available Not Available No t Available Vitals Date Recorded Body height Body mass index (BMI) Body weight Provider Name and Address Organization Details Last Updated DateTime 01/14/2022 182.88 cm 28.8 kg/m2 39896.58 g Dusty Rivera [facility] 01/14/2022 14:30:20 Date Recorded Body height Body mass index (BMI) Body weight Heart rate Oxygen saturation Oxygen saturation in Arterial blood by Pulse oximetry Systolic And Diastolic Provider Name and Address Organization Details Last Updated DateTime 2 182.88 cm 28.8 kg/m2 99518.5 8 g 71 /min 96 % 96 % 131/71 mm[Hg] Fatou Herrmannier [facility] 2 14:37:53 Date Recorded Body height Body mass index (BMI) Body weight Heart rate Systolic And Diastolic Provider Name and Address Organization Details Last Updated DateTime 04/18/2022 182.88 cm 29.2 kg/m2 51751.46 g 95 /min 116/90 mm[Hg] Marilou Kush [facility] 2 14:09:12 Social History None recorded. Functional Status None recorded. Mental Status None recorded. Family History Nothing Reported. Medical History Condition Response Anesthesia Complications N Diabetes N Bleeding Disorder N Cancer N Hypertension N Past Encounters Encounter ID Performer Location Encounter Start Date Encounter Closed Date Diagnosis/Indication Diagnosis SNOMED-CT Code Diagnosis ICD10 Code Diagnosis IMO Codes Diagnosis Note [id number] TIAGO BRANNON MD [facility] [address] [place] [address] 01/14/2022 14:25:29 01/14/2022 15:57:32 Allergic rhinitis 56712166 J30.9 [id number] TIAGO BRANNON MD [facility] [address] [place] [address] 03/08/2022 14:30:56 03/15/2022 10:08:44 Chronic sinusitis 01145898 J32.9 status post endoscopic sinus surgery Polyp of n princess cavity and/or nasal sinus 251376362 J33.9 status post polypectom y Deviated nasal septum 12 6984903 J34.2 septoplast y deferred but recommende d in the future [id number] TIAGO BRANNON MD [facility] [address] [place] [address] 04/18/2022 13:56:13 04/18/2022 14:47:21 Chronic sinusitis 26242447 J32.9 status post endoscopic sinus surgery Polyp of n princess cavity and/or nasal sinus 929184257 J33.9 status post polypectom y Deviated nasal septum 12 6403373 J34.2 status post Septoplast y Health Concerns Section Related Observation LastModified by Organization Detai ls LastModified Time None Recorded Concern Status LastModified by Organization Details LastModified Time None Recorded Advance Directives Directive None Recorded Payers Insurance Date Sequence Insurance Name Policy Number Policy Hutton Covered Member ID Hutton Member ID Guarantor Name 04/26/2022 1 [facility] [id number] Ramon Arboleda [id number] Ramon Arboleda Notes Date Note Type Note Provider Name and Address Organization Details Recorded Time 03/08/2022 text/html doing well after endoscopic sinus surgery and polypectomy TIAGO BRANNON MD [address] [facility] [facility] [place], [address], [facility] 03/08/2022 15:53:37 04/18/2022 text/html Ramon returns today in follow up of s/p bilateral ESS along with polypectomy and deviated septum. He already had extensive bilateral ESS with polypectomy and completed recommended Septoplasty on 04/16/22. He is set to have suture and splint removal today. He has experienced normal postoperative nasal congestion and pain and is observing standard postoperative instructions. TIAGO BRANNON MD [address] [place], [address], [facility] 04/18/2022 14:40:00
--- OUTSIDE RECORDS SUMMARY | 2025-07-11 07:42 | XMS_ITS | Clinical Summary ---
Author Organization [facility] Address [address] [place] [address] Phone [email or web address] Care Team Providers Care Wood Milling Machine Operator Name Role Phone Unavailable Primary Care Provider Unavailabl e Allergies No known active allergies Medications fluticasone (FLONASE) 50 MCG/ACT nasal sprayIndication s:Allergic rhinitis, unspecified seasonality, unspecified trigger Administer 1 spray into each nostril 2 (two) times a day. 16 g 07/15/20 19 Active levocetirizine (XYZAL) 5 MG tabletIndicatio ns:Allergic rhinitis, unspecified seasonality, unspecified trigger Take 1 tablet (5 mg total) by mouth 1 (one) time each day in the evening. 30 tablet 07/15/20 19 025 Discontinued Active Problems Problem Noted Date Diagnosed Date Acute tonsillitis 12/30/2008 Overview (02/25/2018): Other examination of ears and hearing 07/04/2008 Overview (02/25/2018): Encounters Date Type Department Care Team Description 07/06/2025 3:00 PM EDT Office Visit [facility] [place] [address] [place] [address] Ryland Fox OD Presbyopia (Primary Dx) from Last 3 Months Social History Tobacco Use Types Packs/Day Years [...] on file Sexual Orientation Not on file Last Filed Vital Signs Vital Sign Reading Time Taken Comments Blood Pressure 116/80 07/15/2019 5:47 PM EDT Pulse 82 07/15/2019 5:47 PM EDT Temperature 36.7 C (98.1 F) 07/15/2019 5:47 PM EDT Respiratory Rate - - Oxygen Saturation 97% 07/15/2019 5:47 PM EDT Inhaled Oxygen Concentration - - Weight 97.5 kg (215 lb) 07/15/2019 5:47 PM EDT Height 182.9 cm (6') 07/15/2019 5:47 PM EDT Body Mass Index 29.16 07/15/2019 5:47 PM EDT Plan of Treatment Health Maintenance Due Date Last Done Comments CT Colonography 1970 Colonoscopy 1970 Colorectal Cancer Screening Combo 1970 DNA Cologuard 1970 Dental Cleaning/Exam 1970 FIT or FOBT Test 1970 HIV Screening 1970 Hepatitis C Screening 1970 Sigmoidoscopy 1970 Annual Preventive Exam 1988 Hep B Infection Screening - Triple Screen 1988 Hepatitis B Immunization (1 of 3 - 19+ 3-dose series) 1989 Tetanus Diphtheria and Pertussis Immunization (1 - Tdap) 1989 Pneumococcal: 50+ Years (1 o f 1 - PCV) 2020 Zoster Immunization (1 of 2) 2020 Covid-19 Immunization (1 - season) 2025 Influenza Immunization (#1) 2025 10/0 01/2020, 07/03/2017 HIB Immunization Aged Out No longer e ligible based on patient's age to complete this topic HPV Immunization Aged Out No longer e ligible based on patient's age to complete this topic Hepatitis A Immunization Aged Out No longer eligible based on patient's age to complete this topic Polio Immunization Aged Out No longer eligible based on patient's age to complete this topic Insurance [employer] [place] [id number] [place] [address]
[2025-07-11 08:25] VITALS: PULSE 66; PULSE 70
[2025-07-11] MEDS: ALBUTEROL 0.083% 2.5 MG/3 ML NEB IH (08:25)
== END 2025-07-11 23:59 | disposition home or self-care (01) ==
LOC: RT 07:40
PROVIDERS: PCP Nurse Practitioner; Visit Provider Internal Medicine Pulmonary Disease
DX: R94.2 Abnormal results of pulmonary function studies (principal); R06.02 Shortness of breath; R06.09 Other forms of dyspnea
CPT/HCPCS: 94060; 94618; 94640; 94726; 94729